=== PATIENT | male | born 1970 | race Caucasian/White ===

== ENCOUNTER 2016-12-12 09:32 | Emergency (ER) | payer SELFPAY ==
[2016-12-12 09:41] VITALS: TEMP 98.8; BMI 36.9
--- NOTE | 2016-12-12 09:46 | PDOC ---
History of Present Illness - General History Source: Patient Exam Limitations: No Limitations - History of Present Illness Initial Comments: 12/12/16 10:00 The patient is a 46 year old male, with a significant past medical history of HTN and high cholesterol, who presents to the emergency department with possible foreign body stuck in throat. The patient reports yesterday eating pork and since then having sensations of a foreign body stuck in his throat. The patient is speaking in full sentences and completely swallow upon ED arrival. He denies any recent fevers, chills, headache or dizziness. He denies any recent chest pain or shortness of breath. Allergies: NKA Social History: Nonsmoker. Denies EtOH use and recreational drug use. <Lazaro Gray - Last Filed: 12/12/16 10:00> - General History Source: Patient Exam Limitations: No Limitations <Ana Be - Last Filed: 12/12/16 17:17> - General Chief Complaint: Foreign Body (FB) Stated Complaint: FOREIGN BODY Time Seen by Provider: 12/12/16 09:46 Past History <Lazaro Gray - Last Filed: 12/12/16 10:00> - Past Medical History HTN: Yes Hypercholesterolemia: Yes - Psycho/Social/Smoking Cessation Hx Suicidal Ideation: No Smoking History: Former smoker Have you smoked in the past 12 months: No If you are a former smoker, when did you quit?: 2013 Information on smoking cessation initiated: No Hx Alcohol Use: No Drug/Substance Use Hx: No Substance Use Type: None <Ana Be - Last Filed: 12/12/16 17:17> - Past Medical History Allergies/Adverse Reactions: Allergies Allergy/AdvReac Type Severity Reaction Status Date / Time No Known Allergies Allergy Verified 12/12/16 09:42 Home Medications: Ambulatory Orders Aspirin [ASA -] 81 mg PO DAILY 12/12/16 Lisinopril/Hydrochlorothiazide [Lisinopril-Hctz 10-12.5 mg Tab] 1 each PO DAILY 12/12/16 Simvastatin [Zocor -] 40 mg PO HS 12/12/16 Review of Systems - Review of Systems Able to Perform ROS?: Yes Comments:: 12/12/16 10:00 CONSTITUTIONAL: Absent: fever, chills, diaphoresis, generalized weakness, malaise, loss of appetite HEENT: Absent: rhinorrhea, nasal congestion, throat pain, throat swelling, difficulty swallowing, mouth swelling, ear pain, eye pain, visual Changes CARDIOVASCULAR: Absent: chest pain, syncope, palpitations, irregular heart rate, lightheadedness , peripheral edema RESPIRATORY: Absent: cough, shortness of breath, dyspnea with exertion, orthopnea, wheezing, stridor, hemoptysis GASTROINTESTINAL: Absent: abdominal pain, abdominal distension, nausea, vomiting, diarrhea, constipation, melena, hematochezia GENITOURINARY: Absent: dysuria, frequency, urgency, hesitancy, hematuria, flank pain, genital pain MUSCULOSKELETAL: Absent: myalgia, arthralgia, joint swelling SKIN: Absent: rash, itching, pallor HEMATOLOGIC/IMMUNOLOGIC: Absent: easy bleeding, easy bruising, lymphadenopathy, frequent infections ENDOCRINE: Absent: unexplained weight gain, unexplained weight loss, heat intolerance, cold intolerance NEUROLOGIC: Absent: headache, focal weakness or paresthesias, dizziness, unsteady gait, seizure, mental status changes, bladder or bowel incontinence PSYCHIATRIC: Absent: anxiety, depression, suicidal or homicidal ideation, hallucinations. <Lazaro Gray - Last Filed: 12/12/16 10:00> *Physical Exam - Vital Signs Last Vital Signs Temp Pulse Resp BP Pulse Ox 98.8 F 95 H 18 155/99 100 12/12/16 09:39 12/12/16 09:39 12/12/16 09:39 12/12/16 09:39 12/12/16 09:39 - Physical Exam Comments: 12/12/16 10:01 GENERAL: Well developed, well nourished. Awake and alert. No acute distress. HEENT: Normocephalic, atraumatic. PERRLA, EOMI. No conjunctival pallor. Sclera are non- icteric. Moist mucous membranes. Oropharynx is clear. NECK: Supple. Full ROM. No JVD. Carotid pulses 2+ and symmetric, without bruits. No thyromegaly. No lymphadenopathy. Well healed incision scar on the right side of his neck. CARDIOVASCULAR: Regular rate and rhythm. No murmurs, rubs, or gallops. Distal pulses are 2+ and symmetric. PULMONARY: No evidence of respiratory distress. Lungs clear to auscultation bilaterally. No wheezing, rales or rhonchi. ABDOMINAL: Soft. Non-tender. Non-distended. No rebound or guarding. No organomegaly. Normoactive bowel sounds. MUSCULOSKELETAL Normal range of motion at all joints. No bony deformities or tenderness. No CVA tenderness. EXTREMITIES: No cyanosis. No clubbing. No edema. No calf tenderness. SKIN: Warm and dry. Normal capillary refill. No rashes. No jaundice. NEUROLOGICAL: Alert, awake, appropriate. Cranial nerves 2-12 intact. No deficits to light touch and temperature in face, upper extremities and lower extremities. No motor deficits in the in face, upper extremities and lower extremities. Normoreflexic in the upper and lower extremities. Normal speech. Toes are down- going bilaterally. Gait is normal without ataxia. PSYCHIATRIC: Cooperative. Good eye contact. Appropriate mood and affect. <Lazaro Gray - Last Filed: 12/12/16 10:00> - Vital Signs Last Vital Signs Temp Pulse Resp BP Pulse Ox 98.8 F 95 H 18 155/99 100 12/12/16 09:39 12/12/16 09:39 12/12/16 09:39 12/12/16 09:39 12/12/16 09:39 <Ana Be - Last Filed: 12/12/16 17:17> Medical Decision Making - Medical Decision Making A/P: 46 y/o male who has the sensation of a pork bone stuck in his throat. He is very well appearing, can swallow, is eating/drinking normally. Plan is as follows: 1. Xray lateral neck soft tissues Xray neck IMPRESSION: Straightening. No acute pathology. Gave the patient his results. Informed him he may have just scratched his throat. Suggested Motrin if needed, plenty of fluids and gargling with warm salt water. Provided referral for ENT and suggested follow up if no improvement in 1 week. The patient verbalizes understanding of all instructions, has no further questions and is awaiting discharge. A portion of this note was written by my scribe, under my direct supervision. <Ana Be - Last Filed: 12/12/16 17:17> *DC/Admit/Observation/Transfer - Attestations Scribe Attestion: 12/12/16 10:01 Documentation prepared by Lazaro Gray, acting as medical records clerk for Oscar Swann MD. <Lazaro Gray - Last Filed: 12/12/16 10:00> <Ana Be - Last Filed: 12/12/16 17:17> Diagnosis at time of Disposition: Foreign body sensation in throat - Discharge Dispostion Disposition: HOME Condition at time of disposition: Good - Referrals Referrals: Jeffrey Holman MD [Staff Physician] - 1 week - Patient Instructions Additional Instructions: Discharge Instructions: -Take Motrin for pain if needed -Drink plenty of fluids -Gargle with warm salt water 3 times per day -Follow up with Dr. Holman if no improvement in 1 week Instrucciones de narendra: -Cayuse Motrin para el dolor si es necesario -Beber mucho lquido -Gargar con agua salada caliente 3 veces al da -Siga con el Dr. Holman si no mejora en 1 semana
--- NOTE | 2016-12-12 10:13 | PDOC ---
*Physical Exam - Vital Signs Last Vital Signs Temp Pulse Resp BP Pulse Ox 98.8 F 95 H 18 155/99 100 12/12/16 09:39 12/12/16 09:39 12/12/16 09:39 12/12/16 09:39 12/12/16 09:39 Medical Decision Making - Medical Decision Making 12/12/16 10:13 Pt seen by the Advanced Practice Provider under my direct supervision Ancillary studies reviewed I agree with plan as outlined by the Advanced Practice Provider TABITHA Forbes *DC/Admit/Observation/Transfer Diagnosis at time of Disposition: Foreign body sensation in throat - Discharge Dispostion Condition at time of disposition: Good
[2016-12-12 10:47] VITALS: BP 144/93; PULSE 93
== END 2016-12-12 10:48 | disposition home or self-care (01) ==
LOC: JER 09:32
DX: R09.89 Other specified symptoms and signs involving the circulatory and respiratory systems (principal); I10 Essential (primary) hypertension; E78.00 Pure hypercholesterolemia, unspecified; Z87.891 Personal history of nicotine dependence; Z79.82 Long term (current) use of aspirin
CPT/HCPCS: 70360-TC; 99283-25